=== PATIENT | female | born 1990 | race Caucasian/White ===

== ENCOUNTER 2017-06-24 10:52 | Emergency (ER) | payer OTHER ==
[~2017-06-24] VITALS: Ht 172.7 cm; Wt 77.1 kg
[~2017-06-24 10:52] MED LIST: IBUPROFEN 600600 M1 PO; NOHOMEMEDICATIONS
[2017-06-24 11:01] VITALS: BP 123/89
[2017-06-24] MEDS ORDERED: MOBIC7.5 MG PO (11:56)
[2017-06-24] MEDS ORDERED: CRUTCHES MISCELL (11:56)
== END 2017-06-24 12:46 | disposition home or self-care (01) ==
LOC: ER 10:52
DX: S93.402A Sprain of unspecified ligament of left ankle, initial encounter (principal); F10.99 Alcohol use, unspecified with unspecified alcohol-induced disorder; Z88.1 Allergy status to other antibiotic agents; Z88.2 Allergy status to sulfonamides; Z88.5 Allergy status to narcotic agent; W10.8XXA Fall (on) (from) other stairs and steps, initial encounter; Y93.01 Activity, walking, marching and hiking; Y92.89 Other specified places as the place of occurrence of the external cause; Y99.8 Other external cause status

== ENCOUNTER 2017-11-15 16:43 | Emergency (ER) | payer OTHER ==
[~2017-11-15] VITALS: Ht 172.7 cm; Wt 68.0 kg
[~2017-11-15 16:43] MED LIST changes: +CRUTCHES MISCELL; +MOBIC7.5 MG PO
[2017-11-15 17:49] LABS: URINE BILIRUBIN NEGATIVE (Negative); URINE BLOOD 3+ (Negative); URINE GLUCOSE-RANDOM* NEGATIVE (Negative); URINE KETONES NEGATIVE (Negative); URINE LEUKOCYTES 2+ (Negative); URINE NITRITE NEGATIVE (Negative); URINE PROTEIN (DIPSTICK) NEGATIVE (Negative); URINE SPECIFIC GRAVITY <= 1.005 (1.005-1.035); URINE UROBILINOGEN 0.2 E.U./dl (0.2-1.0)
[2017-11-15 17:50] LABS: URINE CLARITY CLOUDY; URINE COLOR AMBER
[2017-11-15 17:57] LABS: CASTS None Seen /LPF (None Seen); CRYSTALS None Seen /LPF (None Seen); MUCUS 0-3 Light strn/LPF (None Seen); SQUAMOUS >10 Many /LPF (0-3); URINE RBC >20 Many /HPF (0-2); URINE WBC >25 Many /HPF (0-5); WBC CLUMPS Moderate (None Seen)
[2017-11-15] MEDS ORDERED: MACROBID 100 M100 M1 PO (18:19)
[2017-11-15] MEDS ORDERED: FLAGYL500 MG PO (18:19)
== END 2017-11-15 18:36 | disposition home or self-care (01) ==
LOC: ER 16:43
PROVIDERS: Nurse Practitioner
DX: N76.0 Acute vaginitis (principal); B96.89 Other specified bacterial agents as the cause of diseases classified elsewhere; N39.0 Urinary tract infection, site not specified; R31.9 Hematuria, unspecified; Z88.1 Allergy status to other antibiotic agents; Z88.5 Allergy status to narcotic agent; Z88.8 Allergy status to other drugs, medicaments and biological substances